=== PATIENT | male | born 1980 | race Caucasian/White ===

== ENCOUNTER 2017-05-15 10:42 | Emergency (ER) | payer OTHER ==
[~2017-05-15] VITALS: Wt 158.8 kg
[~2017-05-15 10:42] MED LIST: MOTRIN800 MG PO; VICODIN 500 MG-1 TAB PO
[2017-05-15 10:47] VITALS: BP 156/77
[2017-05-15] MEDS ORDERED: KEFLEX500 M1 PO (11:00)
[2017-05-15] MEDS ORDERED: NAPROSYN500 MG PO (11:00)
== END 2017-05-15 11:40 | disposition home or self-care (01) ==
LOC: ED 10:42
DX: S61.200A Unspecified open wound of right index finger without damage to nail, initial encounter (principal); R03.0 Elevated blood-pressure reading, without diagnosis of hypertension; Z23 Encounter for immunization; W26.8XXA Contact with other sharp object(s), not elsewhere classified, initial encounter; Y93.89 Activity, other specified; Y92.89 Other specified places as the place of occurrence of the external cause; Y99.8 Other external cause status

== ENCOUNTER 2017-09-29 12:35 | Emergency (ER) | payer SELFPAY ==
[~2017-09-29] VITALS: Ht 182.8 cm; Wt 158.8 kg
[~2017-09-29 12:35] MED LIST changes: +KEFLEX500 M1 PO; +NAPROSYN500 MG PO
[2017-09-29 12:43] VITALS: BP 155/95
[2017-09-29] MEDS ORDERED: PREDNISONE20 M1 PO (15:30)
[2017-09-29] MEDS ORDERED: TESSALON PERLE100 M1 PO (15:30)
[2017-09-29] MEDS ORDERED: ZITHROMAX250 MG PO (15:30)
[2017-09-29] MEDS ORDERED: ALBUTEROL2.5 MG/0.5 INH (15:30)
== END 2017-09-29 15:32 | disposition home or self-care (01) ==
LOC: ED 12:35
DX: J40 Bronchitis, not specified as acute or chronic (principal); F10.10 Alcohol abuse, uncomplicated; Z90.89 Acquired absence of other organs

== ENCOUNTER 2025-05-17 17:18 | Emergency (ER) | payer SELFPAY ==
[~2025-05-17] VITALS: Ht 182.8 cm; Wt 172.8 kg
[~2025-05-17 17:18] MED LIST changes: +ALBUTEROL2.5 MG/0.5 INH; +PREDNISONE20 M1 PO; +TESSALON PERLE100 M1 PO; +ZITHROMAX250 MG PO
[2025-05-17 18:01] VITALS: BP 155/138
[2025-05-17] MEDS ORDERED: MEDROL DOSEPAK4 MG PO (20:46)
[2025-05-17] MEDS ORDERED: ZANAFLEX4 MG PO (20:46)
[2025-05-17] MEDS ORDERED: NAPROSYN500 MG PO (20:46)
== END 2025-05-17 21:00 | disposition home or self-care (01) ==
LOC: ED 17:18
DX: M54.12 Radiculopathy, cervical region (principal); M19.011 Primary osteoarthritis, right shoulder; F17.210 Nicotine dependence, cigarettes, uncomplicated; Z90.89 Acquired absence of other organs